=== PATIENT | female | born 1935 | race Caucasian/White ===

== ENCOUNTER 2017-03-11 04:15 | Observation (INO) | payer MEDICARE, OTHER ==
[~2017-03-11] VITALS: Ht 162.6 cm; Wt 57.9 kg
[2017-03-11] VITALS (16 sets, daily range): BP systolic 83–149; BP diastolic 48–88; PULSE 61–86; RESP 16–21; TEMP 96.1–99.4; O2SAT 6–99
[~2017-03-11 04:15] MED LIST: CIPR500T4 PO; FLAG500T PO; LEVA750T PO; ZOFR4TAB3 SL
--- NOTE | 2017-03-11 04:42 | PD ---
HPI Chief Complaint: Abdominal Pain Time Seen by Provider: 04:37 Travel History International Travel<30 days: No Contact w/Intl Traveler<30days: No Traveled to known affect area: No History of Present Illness HPI 81-year-old female presents to the emergency department for complaint of intermittent severe lower abdominal pain. Pain is severe when present. Pain seemed to worsen since the last half hour 24. Patient started noticing onset of discomfort after bedtime around 10 PM. No fever no chills has had nausea no vomiting no diarrhea no melena or hematochezia. Normal urine output. Last bowel movement was yesterday. Patient denies any fever or chills. Patient's had no chest pain or shortness of breath. No referred back pain. No injury. Patient has had diverticulitis in the past. Previous . Patient believes she may have had appendectomy in the past. Patient states pain is severe enough to make her near syncopal although she's had no loss of consciousness. Patient is unable to identify exacerbating or alleviating factors. No recent antibiotic use. PFSH Past Medical History Narrative Medical Diverticulitis, headaches, laminectomy, , appendectomy; no tobacco use alcohol use; nursing notes reviewed Diminished Hearing: No Diverticulitis: Yes Headaches: Yes Immunizations Current: Yes Menopausal: Yes Social History Alcohol Use: No Tobacco Use: No Substance Use: No Allergies-Medications (Allergen,Severity, Reaction): Coded Allergies: No Known Allergies (Unverified , 03/11/17) Reported Meds & Prescriptions Reported Meds & Active Scripts Active Phenergan (Promethazine HCl) 25 Mg Tablet 25 Mg PO Q6H PRN Flagyl (Metronidazole) 500 Mg Tab 500 Mg PO TID 7 Days Cipro (Ciprofloxacin HCl) 250 Mg Tab 250 Mg PO BID 7 Days Pyridium (Phenazopyridine HCl) 100 Mg Tab 100 Mg PO Q8H PRN Review of Systems Except as stated in HPI: all other systems reviewed are Neg Physical Exam Narrative GENERAL: Well-developed thin female in no respiratory distress intermittently grimacing with abdominal discomfort SKIN: Warm and dry. HEAD: Normocephalic. EYES: No scleral icterus. No injection or drainage. NECK: Supple, trachea midline. No JVD or lymphadenopathy. CARDIOVASCULAR: Regular rate and rhythm without murmurs, gallops, or rubs. RESPIRATORY: Breath sounds equal bilaterally. No accessory muscle use. GASTROINTESTINAL: Abdomen soft, left lower quadrant tenderness without guarding or rebound, nondistended. No palpable pulsatile mass. MUSCULOSKELETAL: No cyanosis, or edema. BACK: Nontender without obvious deformity. No CVA tenderness. Data Data Last Documented VS Vital Signs Date Time Temp Pulse Resp B/P Pulse Ox O2 Delivery O2 Flow Rate FiO2 03/11/17 11:00 16 03/11/17 10:57 82 115/73 96 Room Air 03/11/17 04:23 97.4 Orders Complete Blood Count With Diff (03/11/17 04:37) Comprehensive Metabolic Panel (03/11/17 04:37) Lipase (03/11/17 04:37) Lactic Acid (03/11/17 04:37) Prothrombin Time / Inr (Pt) (03/11/17 04:37) Act Partial Throm Time (Ptt) (03/11/17 04:37) Urinalysis - C+S If Indicated (03/11/17 04:37) Ct Abd/Pel W Iv Contrast(Rout) (03/11/17 04:37) Iv Access Insert/Monitor (03/11/17 04:37) Ecg Monitoring (03/11/17 04:37) Oximetry (03/11/17 04:37) Ondansetron Inj (Zofran Inj) (03/11/17 04:45) Sodium Chlor 0.9% 1000 Ml Inj (Ns 1000 M (03/11/17 04:37) Sodium Chloride 0.9% Flush (Ns Flush) (03/11/17 04:45) Electrocardiogram (03/11/17 04:37) Chest, Single Ap (03/11/17 04:37) Morphine Inj (Morphine Inj) (03/11/17 04:45) Magnesium (Mg) (03/11/17 04:37) Troponin I (03/11/17 04:37) Morphine Inj (Morphine Inj) (03/11/17 06:15) Ondansetron Inj (Zofran Inj) (03/11/17 06:15) Urine Culture (03/11/17 06:20) Sodium Chlorid 0.9% 500 Ml Inj (Ns 500 M (03/11/17 07:15) Iohexol 350 Inj (Omnipaque 350 Inj) (03/11/17 07:06) Ceftriaxone Inj (Rocephin Inj) (03/11/17 07:30) Ciprofloxacin 400 Mg Premix (Cipro 400 M (03/11/17 07:45) Sodium Chlorid 0.9% 500 Ml Inj (Ns 500 M (03/11/17 08:45) Ondansetron Inj (Zofran Inj) (03/11/17 10:00) Sodium Chlorid 0.9% 500 Ml Inj (Ns 500 M (03/11/17 10:00) Metronidazole 500 Mg Inj (Flagyl 500 Mg (03/11/17 11:15) Vital Signs (Adult) CASSANDRA.Q4H (03/11/17 11:25) Metronidazole 500 Mg Inj (Flagyl 500 Mg (03/11/17 20:00) Ciprofloxacin 400 Mg Premix (Cipro 400 M (03/11/17 18:00) Ondansetron Inj (Zofran Inj) (03/11/17 11:30) Sodium Chlor 0.9% 1000 Ml Inj (Ns 1000 M (03/11/17 11:30) Admit Order (Ed Use Only) (03/11/17 11:30) Labs Laboratory Tests Test 03/11/17 03/11/17 03/11/17 03/11/17 04:50 05:00 05:32 06:20 White Blood Count 7.3 TH/MM3 Red Blood Count 4.88 MIL/MM3 Hemoglobin 14.2 GM/DL Hematocrit 43.1 % Mean Corpuscular Volume 88.4 FL Mean Corpuscular Hemoglobin 29.2 PG Mean Corpuscular Hemoglobin 33.0 % Concent Red Cell Distribution Width 13.2 % Platelet Count 272 TH/MM3 Mean Platelet Volume 9.6 FL Neutrophils (%) (Auto) 46.2 % Lymphocytes (%) (Auto) 43.6 % Monocytes (%) (Auto) 7.7 % Eosinophils (%) (Auto) 1.6 % Basophils (%) (Auto) 0.9 % Neutrophils # (Auto) 3.3 TH/MM3 Lymphocytes # (Auto) 3.2 TH/MM3 Monocytes # (Auto) 0.6 TH/MM3 Eosinophils # (Auto) 0.1 TH/MM3 Basophils # (Auto) 0.1 TH/MM3 CBC Comment DIFF FINAL Differential Comment Lactic Acid Level 1.5 mmol/L Prothrombin Time 12.7 SEC Prothromb Time International 1.1 RATIO Ratio Activated Partial 26.8 SEC Thromboplast Time Sodium Level 139 MEQ/L Potassium Level 5.1 MEQ/L Chloride Level 108 MEQ/L Carbon Dioxide Level 24.4 MEQ/L Anion Gap 7 MEQ/L Blood Urea Nitrogen 23 MG/DL Creatinine 0.77 MG/DL Estimat Glomerular Filtration 72 ML/MIN Rate Random Glucose 100 MG/DL Calcium Level 8.6 MG/DL Magnesium Level 2.5 MG/DL Total Bilirubin 0.4 MG/DL Aspartate Amino Transf 38 U/L (AST/SGOT) Alanine Aminotransferase 32 U/L (ALT/SGPT) Alkaline Phosphatase 30 U/L Troponin I LESS THAN 0.02 NG/ML Total Protein 6.5 GM/DL Albumin 3.4 GM/DL Lipase 202 U/L Urine Color KITE Urine Turbidity CLEAR Urine pH 5.5 Urine Specific [place] 1.025 Urine Protein NEG mg/dL Urine Glucose (UA) NEG mg/dL Urine Ketones TRACE mg/dL Urine Occult Blood NEG Urine Nitrite NEG Urine Bilirubin NEG Urine Leukocyte Esterase SMALL Urine RBC 0-2 /hpf Urine WBC 9-14 /hpf Urine Squamous Epithelial 0-5 /hpf Cells Urine Bacteria OCC /hpf Microscopic Urinalysis Comment CULTURE INDICATED MDM Medical Decision Making Medical Screen Exam Complete: Yes Emergency Medical Condition: Yes Medical Record Reviewed: Yes Interpretation(s) lactic acid: 1.5, not elevated ekg: Normal sinus rhythm rate [address] elevation or injury pattern change noted CBC & BMP Diagram 03/11/17 04:50 03/11/17 05:32 lipase: 202, wnl'LFT's: wnl ua: leuk esterase, wbc's and bacteria --cx indicated troponin I: less than 0.02, not elevated Differential Diagnosis Abdominal pain, diverticulitis, viscus perforation, abdominal aortic aneurysm, colitis, UTI, ischemic colitis Narrative Course IV access obtained specimens collected and sent for resulting EKG ordered; patient administered maintenance IV fluids 125 cc an hour morphine sulfate 2-1/ 2 mg IV along with Zofran [address] abdomen and pelvis ordered Patient administered 500 mL bolus of normal saline after morphine sulfate pain controlled Patient requiring re-collection of chemistries and again complaining of increasing abdominal pain colicky in nature diffuse and generalized Patient requesting additional pain medication re-medicated times one dose morphine sulfate 2 mg IV along with Zofran 4 mg IV CBC is automated differential values in normal range Urinalysis positive leukocyte Estrace positive bacteria positive white blood cells culture indicated Metabolic panel resulted shows mild dehydration elevated BUN creatinine and normal range specific gravity upper limit of normal; patient to CT CT abdomen and pelvis reading pending; repeat BP; hypotensive @85/47; patient asymptomatic ---reports "I always run very low"; abdomen re-examined --soft nondistended and nontender to direct palpation to all quadrants and periumbilically, no clinical Florence sign no reproducible tenderness at McBurney' s point no palpable pulsatile mass; no guarding no rebound. Patient denies any pain at this time. @ 07:40 CT reading --- colitis; patient aware feeling some improved, pain decreased, BP trending upward, receiving iv fluids; no bowel movements. Will plan outpatient management if continues to improve. Aware will reassess prior to disposition. Case discussed with oncjustino JI. Diagnosis Primary Impression: Abdominal pain Qualified Code: R10.84 - Generalized abdominal pain Additional Impressions: Colitis UTI (urinary tract infection) Qualified Code: N39.0 - Urinary tract infection without hematuria, site unspecified Med/Other Pt SpecificInfo: Prescription(s) given Scripts Promethazine (Phenergan)25 Mg [id number] Mg PO Q6H PRN (NAUSEA OR VOMITING) #10 TAB Ref 0 Prov:Luisana Cedillo MD 03/11/17 Metronidazole (Flagyl)500 Mg [id number] Mg PO TID 7 Days Ref 0 Prov:Luisana Cedillo MD 03/11/17 Ciprofloxacin (Cipro)250 Mg [id number] Mg PO BID 7 Days Ref 0 Prov:Luisana Cedillo MD 03/11/17 Phenazopyridine (Pyridium)100 Mg [id number] Mg PO Q8H PRN (DYSURIA) #6 TAB Ref 0 Prov:Luisana Cedillo MD 03/11/17 Luisana Cedillo MD March 11, 2017 04:41
[2017-03-11] MEDS ORDERED: ONDANSETRON HCL 4 MG/2 ML VIAL IVP ONE (04:45)
[2017-03-11] MEDS ORDERED: MORPHINE SULFATE 4 MG/ML INJ IV PUSH ONE ×2 (04:45→06:15)
[2017-03-11] MEDS: SODIUM CHLOR 0.9% 1000 ML INJ 1,000 ML IV SCH ×3 (04:45→17:17)
[2017-03-11] MEDS: SODIUM CHLORIDE 0.9% FLUSH 10 ML FLUSH IV FLUSH PRN ×6 (04:47→11:22)
[2017-03-11 05:12] LABS: AUTOMATED NEUTROPHIL # 3.3 TH/MM3 (1.8-7.7); BASOPHIL # 0.1 TH/MM3 (0-0.2); BASOPHIL % 0.9 % (0.0-2.0); EOSINOPHIL # 0.1 TH/MM3 (0-0.4); EOSINOPHIL % 1.6 % (0.0-4.0); HEMATOCRIT 43.1 % (35.0-46.0); HEMO FLAGS DIFF FINAL; LYMPH % 43.6 % (9.0-44.0); LYMPHOCYTE # 3.2 TH/MM3 (1.0-4.8); MEAN CELL VOLUME 88.4 FL (80.0-100.0); MEAN CORPUSCULAR HEMOGLOBIN 29.2 PG (27.0-34.0); MONO % 7.7 % (0.0-8.0); NEUT % 46.2 % (16.0-70.0); PLATELET COUNT 272 TH/MM3 (150-450); RED BLOOD COUNT 4.88 MIL/MM3 (4.00-5.30); RED CELL DISTRIBUTION WIDTH 13.2 % (11.6-17.2); WHITE BLOOD COUNT 7.3 TH/MM3 (4.0-11.0)
--- NOTE | 2017-03-11 05:31 | RADHPO ---
EXAM DATE/TIME: 03/11/2017 04:57 [facility] COMPARISON: No previous studies available for comparison. INDICATIONS : Chest discomfort, abdominal pain for 6 hours MEDICAL HISTORY : None. SURGICAL HISTORY : None. ENCOUNTER: Initial ACUITY: 1 day PAIN SCORE: 0/10 LOCATION: Bilateral chest FINDINGS: A single view of the chest demonstrates the lungs to be symmetrically aerated without evidence of mas s, infiltrate or effusion. The cardiomediastinal contours are unremarkable. Osseous structures are intact. CONCLUSION: Normal examination. Right hemidiaphragm remains elevated Krishna Santiago MD on March 11, 2017 at 5:29 Board Certified Radiologist. This report was verified electronically.
[2017-03-11 05:49] LABS: CHLORIDE 108 MEQ/L (98-107); SODIUM (NA) 139 MEQ/L (136-145)
[2017-03-11 05:51] LABS: POTASSIUM 5.1 MEQ/L (3.5-5.1)
[2017-03-11 05:52] LABS: ANION GAP 7 MEQ/L (5-15); BICARBONATE 24.4 MEQ/L (21.0-32.0)
[2017-03-11 05:53] LABS: BLOOD UREA NITROGEN 23 MG/DL (7-18); MAGNESIUM 2.5 MG/DL (1.5-2.5)
[2017-03-11 05:54] LABS: APTT (PATIENT) 26.8 SEC (24.3-30.1); INTERNATIONAL NORMALIZED RATIO 1.1 RATIO; PROTHROMBIN TIME - PATIENT 12.7 SEC (9.8-11.6)
[2017-03-11 05:55] LABS: ALT (GPT) 32 U/L (10-53); AST (GOT) 38 U/L (15-37)
[2017-03-11 05:56] LABS: GLOMERULAR FILTRATION RATE 72 ML/MIN (>89)
[2017-03-11 05:57] LABS: TOTAL BILIRUBIN ADULT 0.4 MG/DL (0.2-1.0)
[2017-03-11 05:58] LABS: ALKALINE PHOSPHATASE 30 U/L (45-117)
[2017-03-11] MEDS ORDERED: ONDANSETRON HCL 4 MG/2 ML VIAL IV PUSH ONE ×2 (06:15→10:00)
[2017-03-11 06:29] LABS: BLOOD, URINE NEG (NEG); GLUCOSE,URINE NEG (NEG); KETONE, URINE TRACE mg/dL (NEG); NITRITE,URINE NEG (NEG); PH, URINE 5.5 (5.0-8.5)
[2017-03-11 06:36] LABS: BACTERIA, URINE OCC /hpf; RBC, URINE 0-2 /hpf (0-3); SQUAMOUS EPITHELIAL CELL URINE 0-5 /hpf (0-5); URINE COLOR AMBER (YELLW/STRAW)
[2017-03-11 06:37] LABS: COMMENT (UR) CULTURE INDICATED; CULTURE IF INDICATED CULTURE INDICATED
[2017-03-11] MEDS ORDERED: IOHEXOL 350 MG/ML 10 ML VIAL (for RAD DIAG) IV ONE (07:06)
[2017-03-11] MEDS ORDERED: SODIUM CHLORID 0.9% 500 ML INJ 500 ML IV ONE ×3 (07:15→10:00)
[2017-03-11] MEDS ORDERED: MACR100C2 PO (07:25)
[2017-03-11] MEDS ORDERED: ZOFR4TAB3 SL (07:25)
[2017-03-11] MEDS ORDERED: PHEN0.4T PO (07:25)
[2017-03-11] MEDS ORDERED: cefTRIAXone INJ 1,000 MG in SODIUM CHLORIDE 0.9% INJ 100 ML IV ONE (07:30)
--- NOTE | 2017-03-11 07:35 | RADHPO ---
EXAM DATE/TIME: 03/11/2017 06:26 [facility] COMPARISON: No previous studies available for comparison. INDICATIONS : Lower abdominal pain. IV CONTRAST: 100 cc Omnipaque 350 (iohexol) IV ORAL CONTRAST: No oral contrast ingested. RADIATION DOSE: 6.7 CTDIvol (mGy) MEDICAL HISTORY : Diverticulitis. SURGICAL HISTORY : laminectomy. ENCOUNTER: Initial ACUITY: 1 day PAIN SCALE: 8/10 LOCATION: Bilateral lower quadrant TECHNIQUE: Volumetric scanning of the abdomen and pelvis was performed. Using automated exposure control and ad justment of the mA and/or kV according to patient size, radiation dose was kept as low as reasonably achievable to obtain optimal diagnostic quality images. FINDINGS: LOWER LUNGS: The visualized lower lungs are clear. LIVER: There are scattered small cysts of the liver. Heterogeneously enhancing focus measuring about 3.1 cm is seen at the dome of the right hepatic lobe, probably a hemangioma. SPLEEN: Normal size without lesion. PANCREAS: Within normal limits. KIDNEYS: Normal in size and shape. There is no mass, stone or hydronephrosis. ADRENAL GLANDS: Within normal limits. VASCULAR: There is no aortic aneurysm. BOWEL/MESENTERY: Succus like material throughout the colon, mildly distended and with a slight degree of wall thickeni ng and pericolonic stranding. There is also some succus material within the distal ileum. The small b owel is nondistended. There is moderate sigmoid colon diverticulosis but the colonic findings are dif fuse. No perceptible mass. No free fluid or free air. ABDOMINAL WALL: Within normal limits. RETROPERITONEUM: There is no lymphadenopathy. BLADDER: No wall thickening or mass. REPRODUCTIVE: Previous hysterectomy. The ovaries appear to be present. No adnexal mass demonstrated. INGUINAL: There is no lymphadenopathy or hernia. MUSCULOSKELETAL: No acute bony abnormality demonstrated. CONCLUSION: Generalized nonspecific colitis. Álvaro Powell MD on March 11, 2017 at 7:29 Board Certified Radiologist. This report was verified electronically.
[2017-03-11] MEDS ORDERED: METR-1 PO (07:44)
[2017-03-11] MEDS ORDERED: PROM25TA10 PO (07:44)
[2017-03-11] MEDS ORDERED: CIPR250T52 PO (07:44)
[2017-03-11] MEDS ORDERED: CIPROFLOXACIN 400 MG PREMIX 200 ML IV ONE (07:45)
[2017-03-11] MEDS ORDERED: metroNIDAZOLE 500 MG INJ 100 ML IV ONE (11:15)
--- NOTE | 2017-03-11 11:29 | PD ---
Physical Exam Date Seen by Provider: March 11, 2017 Time Seen by Provider: 11:18 Narrative The patient is a 81-year-old female who was initially evaluated by the previous physician, Dr. Cedillo. Please refer to the initial history, physical, diagnostic evaluation, and treatment modality plan. Data Data Last Documented VS Vital Signs Date Time Temp Pulse Resp B/P Pulse Ox O2 Delivery O2 Flow Rate FiO2 03/11/17 11:00 16 03/11/17 10:57 82 115/73 96 Room Air 03/11/17 04:23 97.4 Orders Complete Blood Count With Diff (03/11/17 04:37) Comprehensive Metabolic Panel (03/11/17 04:37) Lipase (03/11/17 04:37) Lactic Acid (03/11/17 04:37) Prothrombin Time / Inr (Pt) (03/11/17 04:37) Act Partial Throm Time (Ptt) (03/11/17 04:37) Urinalysis - C+S If Indicated (03/11/17 04:37) Ct Abd/Pel W Iv Contrast(Rout) (03/11/17 04:37) Iv Access Insert/Monitor (03/11/17 04:37) Ecg Monitoring (03/11/17 04:37) Oximetry (03/11/17 04:37) Ondansetron Inj (Zofran Inj) (03/11/17 04:45) Sodium Chlor 0.9% 1000 Ml Inj (Ns 1000 M (03/11/17 04:37) Sodium Chloride 0.9% Flush (Ns Flush) (03/11/17 04:45) Electrocardiogram (03/11/17 04:37) Chest, Single Ap (03/11/17 04:37) Morphine Inj (Morphine Inj) (03/11/17 04:45) Magnesium (Mg) (03/11/17 04:37) Troponin I (03/11/17 04:37) Morphine Inj (Morphine Inj) (03/11/17 06:15) Ondansetron Inj (Zofran Inj) (03/11/17 06:15) Urine Culture (03/11/17 06:20) Sodium Chlorid 0.9% 500 Ml Inj (Ns 500 M (03/11/17 07:15) Iohexol 350 Inj (Omnipaque 350 Inj) (03/11/17 07:06) Ceftriaxone Inj (Rocephin Inj) (03/11/17 07:30) Ciprofloxacin 400 Mg Premix (Cipro 400 M (03/11/17 07:45) Sodium Chlorid 0.9% 500 Ml Inj (Ns 500 M (03/11/17 08:45) Ondansetron Inj (Zofran Inj) (03/11/17 10:00) Sodium Chlorid 0.9% 500 Ml Inj (Ns 500 M (03/11/17 10:00) Metronidazole 500 Mg Inj (Flagyl 500 Mg (03/11/17 11:15) Labs Laboratory Tests Test 03/11/17 03/11/17 03/11/17 03/11/17 04:50 05:00 05:32 06:20 White Blood Count 7.3 TH/MM3 Red Blood Count 4.88 MIL/MM3 Hemoglobin 14.2 GM/DL Hematocrit 43.1 % Mean Corpuscular Volume 88.4 FL Mean Corpuscular Hemoglobin 29.2 PG Mean Corpuscular Hemoglobin 33.0 % Concent Red Cell Distribution Width 13.2 % Platelet Count 272 TH/MM3 Mean Platelet Volume 9.6 FL Neutrophils (%) (Auto) 46.2 % Lymphocytes (%) (Auto) 43.6 % Monocytes (%) (Auto) 7.7 % Eosinophils (%) (Auto) 1.6 % Basophils (%) (Auto) 0.9 % Neutrophils # (Auto) 3.3 TH/MM3 Lymphocytes # (Auto) 3.2 TH/MM3 Monocytes # (Auto) 0.6 TH/MM3 Eosinophils # (Auto) 0.1 TH/MM3 Basophils # (Auto) 0.1 TH/MM3 CBC Comment DIFF FINAL Differential Comment Lactic Acid Level 1.5 mmol/L Prothrombin Time 12.7 SEC Prothromb Time International 1.1 RATIO Ratio Activated Partial 26.8 SEC Thromboplast Time Sodium Level 139 MEQ/L Potassium Level 5.1 MEQ/L Chloride Level 108 MEQ/L Carbon Dioxide Level 24.4 MEQ/L Anion Gap 7 MEQ/L Blood Urea Nitrogen 23 MG/DL Creatinine 0.77 MG/DL Estimat Glomerular Filtration 72 ML/MIN Rate Random Glucose 100 MG/DL Calcium Level 8.6 MG/DL Magnesium Level 2.5 MG/DL Total Bilirubin 0.4 MG/DL Aspartate Amino Transf 38 U/L (AST/SGOT) Alanine Aminotransferase 32 U/L (ALT/SGPT) Alkaline Phosphatase 30 U/L Troponin I LESS THAN 0.02 NG/ML Total Protein 6.5 GM/DL Albumin 3.4 GM/DL Lipase 202 U/L Urine Color KIET Urine Turbidity CLEAR Urine pH 5.5 Urine Specific [place] 1.025 Urine Protein NEG mg/dL Urine Glucose (UA) NEG mg/dL Urine Ketones TRACE mg/dL Urine Occult Blood NEG Urine Nitrite NEG Urine Bilirubin NEG Urine Leukocyte Esterase SMALL Urine RBC 0-2 /hpf Urine WBC 9-14 /hpf Urine Squamous Epithelial 0-5 /hpf Cells Urine Bacteria OCC /hpf Microscopic Urinalysis Comment CULTURE INDICATED MDM Medical Record Reviewed: Yes Supervised Visit with RYAN: No Interpretation(s) Last Impressions Chest X-Ray [id number] Signed Impressions: Service Date/Time: Saturday, March 11, 2017 04:57 - CONCLUSION: Normal examination. Right hemidiaphragm remains elevated Krishna Santiago MD Abdomen/Pelvis CT 03/11/17436 Signed Impressions: Service Date/Time: Saturday, March 11, 2017 06:26 - CONCLUSION: Generalized nonspecific colitis. Álvaro Powell MD Laboratory Tests Test 03/11/17 03/11/17 03/11/17 03/11/17 04:50 05:00 05:32 06:20 White Blood Count 7.3 TH/MM3 Red Blood Count 4.88 MIL/MM3 Hemoglobin 14.2 GM/DL Hematocrit 43.1 % Mean Corpuscular Volume 88.4 FL Mean Corpuscular Hemoglobin 29.2 PG Mean Corpuscular Hemoglobin 33.0 % Concent Red Cell Distribution Width 13.2 % Platelet Count 272 TH/MM3 Mean Platelet Volume 9.6 FL Neutrophils (%) (Auto) 46.2 % Lymphocytes (%) (Auto) 43.6 % Monocytes (%) (Auto) 7.7 % Eosinophils (%) (Auto) 1.6 % Basophils (%) (Auto) 0.9 % Neutrophils # (Auto) 3.3 TH/MM3 Lymphocytes # (Auto) 3.2 TH/MM3 Monocytes # (Auto) 0.6 TH/MM3 Eosinophils # (Auto) 0.1 TH/MM3 Basophils # (Auto) 0.1 TH/MM3 CBC Comment DIFF FINAL Differential Comment Lactic Acid Level 1.5 mmol/L Prothrombin Time 12.7 SEC Prothromb Time International 1.1 RATIO Ratio Activated Partial 26.8 SEC Thromboplast Time Sodium Level 139 MEQ/L Potassium Level 5.1 MEQ/L Chloride Level 108 MEQ/L Carbon Dioxide Level 24.4 MEQ/L Anion Gap 7 MEQ/L Blood Urea Nitrogen 23 MG/DL Creatinine 0.77 MG/DL Estimat Glomerular Filtration 72 ML/MIN Rate Random Glucose 100 MG/DL Calcium Level 8.6 MG/DL Magnesium Level 2.5 MG/DL Total Bilirubin 0.4 MG/DL Aspartate Amino Transf 38 U/L (AST/SGOT) Alanine Aminotransferase 32 U/L (ALT/SGPT) Alkaline Phosphatase 30 U/L Troponin I LESS THAN 0.02 NG/ML Total Protein 6.5 GM/DL Albumin 3.4 GM/DL Lipase 202 U/L Urine Color KIET Urine Turbidity CLEAR Urine pH 5.5 Urine Specific [place] 1.025 Urine Protein NEG mg/dL Urine Glucose (UA) NEG mg/dL Urine Ketones TRACE mg/dL Urine Occult Blood NEG Urine Nitrite NEG Urine Bilirubin NEG Urine Leukocyte Esterase SMALL Urine RBC 0-2 /hpf Urine WBC 9-14 /hpf Urine Squamous Epithelial 0-5 /hpf Cells Urine Bacteria OCC /hpf Microscopic Urinalysis Comment CULTURE INDICATED Differential Diagnosis Differential diagnosis includes gastroenteritis, colitis, enteritis, diverticulitis, pyelonephritis, infectious diarrhea, dehydration. Narrative Course The patient was initially evaluated by the previous physician, Dr. Cedillo. Please refer to the initial history, physical, diagnostic evaluation, treatment modality plan. The patient signed out at 7 AM with reevaluation pending. The patient's CT reveals colitis, UA reveals WBCs, otherwise electrolytes and white count are unremarkable. The patient was provided multiple doses of Zofran, morphine, IV fluids, but continued to have nausea. She is unable to tolerate oral intake in the first 6 hours and continued to have diarrhea. The patient was reevaluated over the course of 6 hours, she continued to have symptoms, did not feel well enough to go home. I believe it is reasonable to make a patient a 23 hour observation for IV fluids, Bentyl, and Zofran as needed. I discussed the patient with the on-call medical service who agrees with 23 hour observation. Physician Communication Physician Communication I discussed the patient with Dr. Huang who agrees with 23 hour observation. Diagnosis Primary Impression: Abdominal pain Qualified Code: R10.84 - Generalized abdominal pain Additional Impressions: Colitis UTI (urinary tract infection) Qualified Code: N39.0 - Urinary tract infection without hematuria, site unspecified Admitting Information Admitting Physician Requests: Observation Referrals: Primary Care Physician call for appointment Patient Instructions: General Instructions, Narcotic given in the ED, Urinary Tract Infection in Women (ED), Abdominal Pain (ED), Colitis (ED) Departure Forms: Tests/Procedures Scripts Promethazine (Phenergan)25 Mg [id number] Mg PO Q6H PRN (NAUSEA OR VOMITING) #10 TAB Ref 0 Prov:Luisana Cedillo MD 03/11/17 Metronidazole (Flagyl)500 Mg [id number] Mg PO TID 7 Days Ref 0 Prov:Luisana Cedillo MD 03/11/17 Ciprofloxacin (Cipro)250 Mg [id number] Mg PO BID 7 Days Ref 0 Prov:Luisana Cedillo MD 03/11/17 Phenazopyridine (Pyridium)100 Mg [id number] Mg PO Q8H PRN (DYSURIA) #6 TAB Ref 0 Prov:Luisana Cedillo MD 03/11/17 Mayank Bowman MD March 11, 2017 11:29
[2017-03-11] MEDS ORDERED: SODIUM CHLOR 0.9% 1000 ML INJ 1,000 ML IV SCH (11:30)
[2017-03-11] MEDS ORDERED: ONDANSETRON HCL 4 MG/2 ML VIAL IV PUSH PRN (11:30)
[2017-03-11] MEDS ORDERED: ACETAMINOPHEN/HYDROcodone 325 MG/5 MG TAB PO PRN (12:15)
[2017-03-11] MEDS ORDERED: ACETAMINOPHEN 325 MG TAB PO PRN (12:15)
--- NOTE | 2017-03-11 12:18 | HHI.HP ---
[facility] Service [facility] Primary Care Physician Non-Staff Admission Diagnosis colitis, UTI, intractable nausea, abdominal pain Diagnoses: (1) Colitis Diagnosis: Principal (2) UTI (urinary tract infection) Diagnosis: Principal Chief Complaint: abdominal pain Travel History International Travel<30 Days: No Contact w/Intl Traveler <30 Da: No Traveled to Known Affected Are: No History of Present Illness patient is a 81 y/o female who presented to ER with abdominal pain. she says that the pain started last night. pain was periumbilical , colicky in nature and severe in intensity. the pain was associated with nausea and a few non- bloody loose bowel movements. she didn't vomit . there's no report of fever but she had some chills last night. Review of Systems Constitutional: COMPLAINS OF: Chills, DENIES: Fever, Weight loss, Night Sweats Eyes: DENIES: Blurred vision, Diplopia, Vision loss, Double Vision Ears, nose, mouth, throat: DENIES: Tinnitus, Vertigo, Throat pain, Epistaxis Respiratory: DENIES: Apneas, Cough, Snoring, Wheezing, Hemoptysis, Sputum production, Shortness of breath Cardiovascular: DENIES: Chest pain, Palpitations, Syncope, Dyspnea on Exertion , PND, Lower Extremity Edema, Orthopnea, Claudication Gastrointestinal: COMPLAINS OF: Abdominal pain, Diarrhea, Nausea, DENIES: Black stools, Bloody stools, Constipation, Vomiting, Difficulty Swallowing, Anorexia Genitourinary: DENIES: Urinary frequency, Urgency, Hematuria, Dysuria Musculoskeletal: DENIES: Joint pain, Muscle aches, Stiffness, Joint Swelling Integumentary: DENIES: Rash Neurologic: DENIES: Abnormal gait, Headache, Localized weakness, Paresthesias, Seizures, Speech Problems, Tremor, Poor Balance Psychiatric: DENIES: Anxiety, Confusion, Mood changes, Depression, Hallucinations, Agitation, Suicidal Ideation, Homicidal Ideation, Delusions Past Family Social History Past Medical History not significant Past Surgical History back surgery. Reported Medications Zofran Odt (Ondansetron Odt) 4 Mg Tab 4 Mg SL Q6HR PRN Pyridium (Phenazopyridine HCl) 100 Mg Tab 100 Mg PO Q8H PRN Macrobid (Nitrofurantoin Monohydrate Macrocrystals) 100 Mg Capsule 100 Mg PO BID 7 Days Allergies: Coded Allergies: No Known Allergies (Unverified , 03/11/17) Active Ordered Medications Current Medications Ondansetron HCl 4 mg 4 mg ONCE ONCE IVP Last administered on 03/11/17 04:46; Start 03/11/17 at 04:45; Stop 03/11/17 at 04:46; Status DC Sodium Chloride (NS 1000 ml Inj) 1,000 ml @ 125 mls/hr Q8H IV Last administered on 03/11/17 09:53; Start 03/11/17 at 04:37; Stop 03/11/17 at 11:29 ; Status DC Sodium Chloride (NS Flush) 2 ml UNSCH PRN IV FLUSH FLUSH AFTER USING IV ACCESS Last administered on 03/11/17 11:22; Start 03/11/17 at 04:45 Morphine Sulfate (Morphine Inj) 2.5 mg ONCE ONCE IV PUSH Last administered on 03/11/17 04:47; Start 03/11/17 at 04:45; Stop 03/11/17 at 04:46; Status DC Morphine Sulfate (Morphine Inj) 3 mg ONCE ONCE IV PUSH Last administered on 06:11; Start 03/11/17 at 06:15; Stop 03/11/17 at 06:16; Status DC Ondansetron HCl 4 mg 4 mg ONCE ONCE IV PUSH Last administered on 03/11/17 06: 10; Start 03/11/17 at 06:15; Stop 03/11/17 at 06:16; Status DC Sodium Chloride (NS 500 ml Inj) 500 ml @ 500 mls/hr BOLUS ONCE IV Last administered on 03/11/17 07:23; Start 03/11/17 at 07:15; Stop 03/11/17 at 08:14 ; Status DC Iohexol 100 ml 100 ml STK-MED ONCE IV Last administered on 03/11/17 07:06; Start 03/11/17 at 07:06; Stop 03/11/17 at 07:07; Status DC Ceftriaxone Sodium 1000 mg/ Sodium Chloride 100 ml @ 200 mls/hr ONCE ONCE IV Last administered on 03/11/17 07:48; Start 03/11/17 at 07:30; Stop 03/11/17 at 07:59; Status DC Ciprofloxacin/ Dextrose 200 ml @ 200 mls/hr ONCE ONCE IV Last administered on 03/11/17 08:26; Start 03/11/17 at 07:45; Stop 03/11/17 at 08:44; Status DC Sodium Chloride (NS 500 ml Inj) 500 ml @ 500 mls/hr BOLUS ONCE IV Last administered on 03/11/17 08:44; Start 03/11/17 at 08:45; Stop 03/11/17 at 09:44 ; Status DC Ondansetron HCl 4 mg 4 mg ONCE ONCE IV PUSH Last administered on 03/11/17 09: 53; Start 03/11/17 at 10:00; Stop 03/11/17 at 10:01; Status DC Sodium Chloride 500 ml @ 500 mls/hr BOLUS ONCE IV Last administered on 09:58; Start 03/11/17 at 10:00; Stop 03/11/17 at 10:59; Status DC Metronidazole 100 ml @ 100 mls/hr ONCE ONCE IV Last administered on 11:22; Start 03/11/17 at 11:15; Stop 03/11/17 at 12:14 Metronidazole 100 ml @ 100 mls/hr Q8H IV ; Start 03/11/17 at 20:00 Ciprofloxacin/ Dextrose (Cipro 400 Mg Premix) 200 ml @ 200 mls/hr Q12H IV ; Start 03/11/17 at 18:00 Ondansetron HCl 4 mg 4 mg Q8HR PRN IV PUSH NAUSEA; Start 03/11/17 at 11:30 Sodium Chloride (NS 1000 ml Inj) 1,000 ml @ 84 mls/hr [id number] IV ; Start at 11:30 Social History no smoking or drinking. Physical Exam Vital Signs Vital Signs Date Time Temp Pulse Resp B/P Pulse Ox O2 Delivery O2 Flow Rate FiO2 03/11/17 11:51 64 16 113/71 95 Room Air 03/11/17 11:00 16 03/11/17 10:57 82 16 115/73 96 Room Air 03/11/17 10:30 74 16 111/64 96 Room Air 03/11/17 09:36 78 18 101/62 99 Room Air 03/11/17 09:10 16 03/11/17 08:35 73 16 94/56 96 Room Air 03/11/17 07:50 84 16 95/58 95 Room Air 03/11/17 07:30 79 16 87/55 03/11/17 07:05 16 03/11/17 07:05 61 16 83/48 96 Room Air 03/11/17 06:25 75 19 120/72 97 Room Air 03/11/17 06:16 17 03/11/17 05:20 78 18 149/82 96 Room Air 03/11/17 05:14 Room Air 03/11/17 04:52 18 03/11/17 04:23 97.4 68 18 126/88 99 Physical Exam GENERAL: This is a well-nourished, well-developed patient, in no apparent distress. HEAD: Atraumatic. Normocephalic. No temporal or scalp tenderness. EYES: Pupils equal round and reactive. Extraocular motions intact. No scleral icterus. No injection or drainage. ENT: Nose without bleeding, purulent drainage or septal hematoma. Throat without erythema, tonsillar hypertrophy or exudate. Uvula midline. Airway patent. NECK: Trachea midline. No JVD or lymphadenopathy. Supple, nontender, no meningeal signs. CARDIOVASCULAR: Regular rate and rhythm without murmurs, gallops, or rubs. RESPIRATORY: Clear to auscultation. Breath sounds equal bilaterally. No wheezes , rales, or rhonchi. GASTROINTESTINAL: Abdomen soft, non-tender, nondistended. No hepato-splenomegaly , or palpable masses. No guarding. MUSCULOSKELETAL: Extremities without clubbing, cyanosis, or edema. No joint tenderness, effusion, or edema noted. No calf tenderness. Negative Homans sign bilaterally. NEUROLOGICAL: Awake and alert. Cranial nerves II through XII intact. Motor and sensory grossly within normal limits. Five out of 5 muscle strength in all muscle groups. Normal speech. Laboratory Laboratory Tests Test 03/11/17 03/11/17 03/11/17 03/11/17 04:50 05:00 05:32 06:20 White Blood Count 7.3 Red Blood Count 4.88 Hemoglobin 14.2 Hematocrit 43.1 Mean Corpuscular Volume 88.4 Mean Corpuscular Hemoglobin 29.2 Mean Corpuscular Hemoglobin 33.0 Concent Red Cell Distribution Width 13.2 Platelet Count 272 Mean Platelet Volume 9.6 Neutrophils (%) (Auto) 46.2 Lymphocytes (%) (Auto) 43.6 Monocytes (%) (Auto) 7.7 Eosinophils (%) (Auto) 1.6 Basophils (%) (Auto) 0.9 Neutrophils # (Auto) 3.3 Lymphocytes # (Auto) 3.2 Monocytes # (Auto) 0.6 Eosinophils # (Auto) 0.1 Basophils # (Auto) 0.1 CBC Comment DIFF FINAL Differential Comment Lactic Acid Level 1.5 Prothrombin Time 12.7 Prothromb Time International 1.1 Ratio Activated Partial 26.8 Thromboplast Time Sodium Level 139 Potassium Level 5.1 Chloride Level 108 Carbon Dioxide Level 24.4 Anion Gap 7 Blood Urea Nitrogen 23 Creatinine 0.77 Estimat Glomerular Filtration 72 Rate Random Glucose 100 Calcium Level 8.6 Magnesium Level 2.5 Total Bilirubin 0.4 Aspartate Amino Transf 38 (AST/SGOT) Alanine Aminotransferase 32 (ALT/SGPT) Alkaline Phosphatase 30 Troponin I LESS THAN 0.02 Total Protein 6.5 Albumin 3.4 Lipase 202 Urine Color KIET Urine Turbidity CLEAR Urine pH 5.5 Urine Specific [place] 1.025 Urine Protein NEG Urine Glucose (UA) NEG Urine Ketones TRACE Urine Occult Blood NEG Urine Nitrite NEG Urine Bilirubin NEG Urine Leukocyte Esterase SMALL Urine RBC 0-2 Urine WBC 9-14 Urine Squamous Epithelial 0-5 Cells Urine Bacteria OCC Microscopic Urinalysis Comment CULTURE INDICATED Date/Time Procedure Status Source Growth 03/11/17 06:20 Urine Culture Received Urine Clean Catch Pending Result Diagram: 03/11/17 0450 03/11/17 0532 Imaging Last Impressions Chest X-Ray 03/11/17436 Signed Impressions: Service Date/Time: Saturday, March 11, 2017 04:57 - CONCLUSION: Normal examination. Right hemidiaphragm remains elevated Krishna Santiago MD Abdomen/Pelvis CT 03/11/17436 Signed Impressions: Service Date/Time: Saturday, March 11, 2017 06:26 - CONCLUSION: Generalized nonspecific colitis. Álvaro Powell MD Assessment and Plan Assessment and Plan A/P - colitis start on clear liquid diet and advance- slowly as tolerates. continue with IV antibiotics- antiemetics as needed. continue with pain control. -possible UT- continue antibiotic- follow the culture -DVT prophylaxis with SCD's Discussed Condition With ER physician and the patient. Problem Qualifiers (1) UTI (urinary tract infection): Qualified Code: N39.0 - Urinary tract infection without hematuria, site unspecified Jose Huang MD March 11, 2017 12:18
[2017-03-11] MEDS ORDERED: SODIUM CHLOR 0.9% 250 ML INJ 250 ML IV ONE (17:15)
[2017-03-11] MEDS: CIPROFLOXACIN 400 MG PREMIX 200 ML IV SCH (17:16)
[2017-03-11] MEDS: metroNIDAZOLE 500 MG INJ 100 ML IV SCH (22:29)
[2017-03-12 00:50] VITALS: BP 93/61; PULSE 79; RESP 18; TEMP 98.1; O2SAT 99
[2017-03-12 05:30] LABS: C. DIFF EPI 027 PRESUMPTIVE NEGATIVE (NEGATIVE); C. DIFF TOXIN PCR NEGATIVE (NEGATIVE)
[2017-03-12] MEDS: metroNIDAZOLE 500 MG INJ 100 ML IV SCH ×3 (06:16→20:16)
[2017-03-12] MEDS: CIPROFLOXACIN 400 MG PREMIX 200 ML IV SCH ×2 (06:16→17:44)
[2017-03-12 06:19] VITALS: BP 94/57; PULSE 85; RESP 16; TEMP 98.9; O2SAT 95
[2017-03-12 08:00] VITALS: BP 93/58; PULSE 98; RESP 16; TEMP 98.1; O2SAT 93
--- NOTE | 2017-03-12 08:27 | HHI.PR ---
Subjective Remarks still with some nausea. had some diarrhea last night. no abdominal pain today. afebrile. complaining of headache. Objective Vitals Vital Signs Date Time Temp Pulse Resp B/P Pulse Ox O2 Delivery O2 Flow Rate FiO2 03/12/17 06:19 98.9 85 16 94/57 95 03/12/17 00:50 98.1 79 18 93/61 99 03/11/17 21:20 99.4 86 16 95/54 96 03/11/17 16:00 96.5 85 20 88/59 93 03/11/17 14:39 96.1 86 21 108/68 97 03/11/17 14:17 78 16 117/71 98 Nasal Cannula 2 03/11/17 13:00 80 16 111/61 98 Nasal Cannula 2 03/11/17 11:51 64 16 113/71 95 Room Air 03/11/17 11:00 16 03/11/17 10:57 82 16 115/73 96 Room Air 03/11/17 10:30 74 16 111/64 96 Room Air 03/11/17 09:36 78 18 101/62 99 Room Air 03/11/17 09:10 16 03/11/17 08:35 73 16 94/56 96 Room Air I/O 03/11/17 03/11/17 03/11/17 03/12/17 03/12/17 03/12/17 07:00 15:00 23:00 07:00 15:00 23:00 Intake Total 2400 ml Balance 2400 ml Intake IV Total 2400 ml # Voids 3 4 # Bowel Movements 9 4 Result Diagram: 03/11/17 0450 03/11/17 0532 Imaging Last Impressions Chest X-Ray 03/11/17436 Signed Impressions: Service Date/Time: Saturday, March 11, 2017 04:57 - CONCLUSION: Normal examination. Right hemidiaphragm remains elevated Krishna Santiago MD Abdomen/Pelvis CT 03/11/17436 Signed Impressions: Service Date/Time: Saturday, March 11, 2017 06:26 - CONCLUSION: Generalized nonspecific colitis. Álvaro Powell MD Objective Remarks GENERAL: This is a well-nourished, well-developed patient, in no apparent distress. CARDIOVASCULAR: Regular rate and regular rhythm without murmurs, gallops, or rubs. RESPIRATORY: Clear to auscultation. Breath sounds equal bilaterally. No wheezes , rales, or rhonchi. GASTROINTESTINAL: Abdomen soft, non-tender, nondistended. Normal, active bowel sounds MUSCULOSKELETAL: Extremities without clubbing, cyanosis, or edema. NEURO: Alert & Oriented x4 to person, place, time, situation. Moves all ext x4 Procedures none Medications and IVs Current Medications Ondansetron HCl 4 mg 4 mg ONCE ONCE IVP Last administered on 03/11/17 04:46; Start 03/11/17 at 04:45; Stop 03/11/17 at 04:46; Status DC Sodium Chloride (NS 1000 ml Inj) 1,000 ml @ 125 mls/hr Q8H IV Last administered on 03/11/17 09:53; Start 03/11/17 at 04:37; Stop 03/11/17 at 11:29 ; Status DC Sodium Chloride (NS Flush) 2 ml UNSCH PRN IV FLUSH FLUSH AFTER USING IV ACCESS Last administered on 03/11/17 11:22; Start 03/11/17 at 04:45 Morphine Sulfate (Morphine Inj) 2.5 mg ONCE ONCE IV PUSH Last administered on 03/11/17 04:47; Start 03/11/17 at 04:45; Stop 03/11/17 at 04:46; Status DC Morphine Sulfate (Morphine Inj) 3 mg ONCE ONCE IV PUSH Last administered on 06:11; Start 03/11/17 at 06:15; Stop 03/11/17 at 06:16; Status DC Ondansetron HCl 4 mg 4 mg ONCE ONCE IV PUSH Last administered on 03/11/17 06: 10; Start 03/11/17 at 06:15; Stop 03/11/17 at 06:16; Status DC Sodium Chloride (NS 500 ml Inj) 500 ml @ 500 mls/hr BOLUS ONCE IV Last administered on 03/11/17 07:23; Start 03/11/17 at 07:15; Stop 03/11/17 at 08:14 ; Status DC Iohexol 100 ml 100 ml STK-MED ONCE IV Last administered on 03/11/17 07:06; Start 03/11/17 at 07:06; Stop 03/11/17 at 07:07; Status DC Ceftriaxone Sodium 1000 mg/ Sodium Chloride 100 ml @ 200 mls/hr ONCE ONCE IV Last administered on 03/11/17 07:48; Start 03/11/17 at 07:30; Stop 03/11/17 at 07:59; Status DC Ciprofloxacin/ Dextrose 200 ml @ 200 mls/hr ONCE ONCE IV Last administered on 03/11/17 08:26; Start 03/11/17 at 07:45; Stop 03/11/17 at 08:44; Status DC Sodium Chloride (NS 500 ml Inj) 500 ml @ 500 mls/hr BOLUS ONCE IV Last administered on 03/11/17 08:44; Start 03/11/17 at 08:45; Stop 03/11/17 at 09:44 ; Status DC Ondansetron HCl 4 mg 4 mg ONCE ONCE IV PUSH Last administered on 03/11/17 09: 53; Start 03/11/17 at 10:00; Stop 03/11/17 at 10:01; Status DC Sodium Chloride 500 ml @ 500 mls/hr BOLUS ONCE IV Last administered on 09:58; Start 03/11/17 at 10:00; Stop 03/11/17 at 10:59; Status DC Metronidazole 100 ml @ 100 mls/hr ONCE ONCE IV Last administered on 11:22; Start 03/11/17 at 11:15; Stop 03/11/17 at 12:14; Status DC Metronidazole 100 ml @ 100 mls/hr Q8H IV Last administered on 03/12/17 06:16 ; Start 03/11/17 at 20:00 Ciprofloxacin/ Dextrose (Cipro 400 Mg Premix) 200 ml @ 200 mls/hr Q12H IV Last administered on 03/12/17 06:16; Start 03/11/17 at 18:00 Ondansetron HCl 4 mg 4 mg Q8HR PRN IV PUSH NAUSEA Last administered on 15:47; Start 03/11/17 at 11:30 Sodium Chloride (NS 1000 ml Inj) 1,000 ml @ 40 mls/hr Q24H IV Last administered on 03/11/17 15:21; Start 03/11/17 at 11:30; Stop 03/11/17 at 17:04 ; Status DC Acetaminophen (Tylenol) 650 mg Q4H PRN PO FEVER/ PAIN < 5; Start 03/11/17 at 12 :15 Acetaminophen/ Hydrocodone Bitart 1 tab 1 tab Q4H PRN PO PAIN > 5 Last administered on 03/11/17 15:48; Start 03/11/17 at 12:15 Sodium Chloride 1,000 ml @ 75 mls/hr [id number] IV Last administered on 17:17; Start 03/11/17 at 17:15 Sodium Chloride (NS 250 ml Inj) 250 ml @ 250 mls/hr ONCE ONCE IV Last administered on 03/11/17 17:16; Start 03/11/17 at 17:15; Stop 03/11/17 at 18:14 ; Status DC A/P Assessment and Plan A/P - colitis will advance the diet slowly- continue with IV antibiotics- antiemetics as needed. continue with pain control. stool negative for c-diff- will check stool culture. -possible UT- continue antibiotic- follow the culture -DVT prophylaxis with SCD's Discharge Planning possible dc home tomorrow if stable and tolerates the diet. Jose Huang MD March 12, 2017 08:27
[2017-03-12 09:27] LABS: AUTOMATED NEUTROPHIL # 10.5 TH/MM3 (1.8-7.7); BASOPHIL # 0.1 TH/MM3 (0-0.2); BASOPHIL % 1.1 % (0.0-2.0); EOSINOPHIL % 0.1 % (0.0-4.0); HEMATOCRIT 36.6 % (35.0-46.0); HEMO FLAGS DIFF FINAL; LYMPH % 7.9 % (9.0-44.0); MEAN CELL VOLUME 89.3 FL (80.0-100.0); MEAN CORPUSCULAR HEMOGLOBIN 29.7 PG (27.0-34.0); MEAN CORPUSCULAR HGB CONC 33.3 % (32.0-36.0); MONO % 11.5 % (0.0-8.0); NEUT % 79.4 % (16.0-70.0); PLATELET COUNT 224 TH/MM3 (150-450); RED BLOOD COUNT 4.09 MIL/MM3 (4.00-5.30); RED CELL DISTRIBUTION WIDTH 13.2 % (11.6-17.2); WHITE BLOOD COUNT 13.1 TH/MM3 (4.0-11.0)
[2017-03-12] MEDS: ACETAMIN 325 MG/BUTALBITAL 50 MG/CAFFEINE 40 MG TAB PO PRN (09:45)
[2017-03-12] MEDS: SODIUM CHLOR 0.9% 1000 ML INJ 1,000 ML IV SCH ×2 (09:45→17:44)
[2017-03-12 10:32] LABS: BICARBONATE 24.3 MEQ/L (21.0-32.0); POTASSIUM 3.3 MEQ/L (3.5-5.1)
[2017-03-12 11:11] LABS: CALCIUM-PROTEIN CORRECTED 8.4 MG/DL (8.5-10.1)
[2017-03-12 12:00] VITALS: BP 89/57; PULSE 76; RESP 18; TEMP 98.6; O2SAT 94
[2017-03-12] MEDS ORDERED: POTASSIUM CHLORIDE 10 MEQ CONTROLLED RELEASE TAB PO ONE (13:15)
--- NOTE | 2017-03-12 15:23 | EKG ---
Date Performed: 03/11/2017 Time Performed: 04:47:54 PTAGE: 81 years EKG: Sinus rhythm Low QRS voltages in precordial leads Borderline ECG NO PREVIOUS TRACING DOCTOR: Paul Chun Interpretating Date/Time 03/12/2017 15:22:02
[2017-03-12 16:00] VITALS: BP 84/58; PULSE 84; RESP 20; TEMP 99.1; O2SAT 92
[2017-03-12 20:00] VITALS: BP 84/51; PULSE 87; RESP 18; TEMP 99.1; O2SAT 91
[2017-03-13 00:39] VITALS: BP 91/52; PULSE 79; RESP 16; TEMP 97.9; O2SAT 94
[2017-03-13] MEDS: metroNIDAZOLE 500 MG INJ 100 ML IV SCH ×2 (03:53→11:43)
[2017-03-13] MEDS: ACETAMIN 325 MG/BUTALBITAL 50 MG/CAFFEINE 40 MG TAB PO PRN (03:54)
[2017-03-13] MEDS: CIPROFLOXACIN 400 MG PREMIX 200 ML IV SCH (05:59)
[2017-03-13 07:29] LABS: AUTOMATED NEUTROPHIL # 8.6 TH/MM3 (1.8-7.7); BASOPHIL # 0.1 TH/MM3 (0-0.2); BASOPHIL % 0.6 % (0.0-2.0); EOSINOPHIL % 0.4 % (0.0-4.0); HEMATOCRIT 33.4 % (35.0-46.0); HEMO FLAGS DIFF FINAL; LYMPH % 14.6 % (9.0-44.0); LYMPHOCYTE # 1.6 TH/MM3 (1.0-4.8); MEAN CELL VOLUME 89.1 FL (80.0-100.0); MEAN CORPUSCULAR HEMOGLOBIN 29.5 PG (27.0-34.0); MEAN CORPUSCULAR HGB CONC 33.2 % (32.0-36.0); NEUT % 77.4 % (16.0-70.0); PLATELET COUNT 210 TH/MM3 (150-450); RED BLOOD COUNT 3.75 MIL/MM3 (4.00-5.30); RED CELL DISTRIBUTION WIDTH 13.1 % (11.6-17.2); WHITE BLOOD COUNT 11.1 TH/MM3 (4.0-11.0)
[2017-03-13 08:00] VITALS: BP 93/60; PULSE 80; RESP 18; TEMP 97.8; O2SAT 93
--- NOTE | 2017-03-13 10:04 | HHI.PR ---
Subjective Remarks resting comfortably with no distress. abdominal pain,nausea have resolved. no diarrhea. no fever. Objective Vitals Vital Signs Date Time Temp Pulse Resp B/P Pulse Ox O2 Delivery O2 Flow Rate FiO2 03/13/17 08:00 97.8 80 18 93/60 93 03/13/17 04:00 03/13/17 00:39 97.9 79 16 91/52 94 03/12/17 20:00 99.1 87 18 84/51 91 03/12/17 16:00 99.1 84 20 84/58 92 03/12/17 12:00 98.6 76 18 89/57 94 03/12/17 10:45 16 I/O 03/12/17 03/12/17 03/12/17 03/13/17 03/13/17 03/13/17 06:59 14:59 22:59 06:59 14:59 22:59 Intake Total 690 ml 590 ml 633 ml Balance 690 ml 590 ml 633 ml Intake Oral 690 ml IV Total 590 ml 633 ml # Voids 4 2 5 # Bowel Movements 4 0 Result Diagram: 03/13/17 0632 03/12/17 0855 Imaging Last Impressions Chest X-Ray 03/11/17436 Signed Impressions: Service Date/Time: Saturday, March 11, 2017 04:57 - CONCLUSION: Normal examination. Right hemidiaphragm remains elevated Krishna Santiago MD Abdomen/Pelvis CT 03/11/17436 Signed Impressions: Service Date/Time: Saturday, March 11, 2017 06:26 - CONCLUSION: Generalized nonspecific colitis. Álvaro Powell MD Objective Remarks GENERAL: This is a well-nourished, well-developed patient, in no apparent distress. CARDIOVASCULAR: Regular rate and regular rhythm without murmurs, gallops, or rubs. RESPIRATORY: Clear to auscultation. Breath sounds equal bilaterally. No wheezes , rales, or rhonchi. GASTROINTESTINAL: Abdomen soft, non-tender, nondistended. Normal, active bowel sounds MUSCULOSKELETAL: Extremities without clubbing, cyanosis, or edema. NEURO: Alert & Oriented x4 to person, place, time, situation. Moves all ext x4 Procedures none Medications and IVs Current Medications Ondansetron HCl 4 mg 4 mg ONCE ONCE IVP Last administered on 03/11/17t 04:46; Start 03/11/17 at 04:45; Stop 03/11/17 at 04:46; Status DC Sodium Chloride (NS 1000 ml Inj) 1,000 ml @ 125 mls/hr Q8H IV Last administered on 03/11/17 09:53; Start 03/11/17 at 04:37; Stop 03/11/17 at 11:29 ; Status DC Sodium Chloride (NS Flush) 2 ml UNSCH PRN IV FLUSH FLUSH AFTER USING IV ACCESS Last administered on 03/11/17 11:22; Start 03/11/17 at 04:45 Morphine Sulfate (Morphine Inj) 2.5 mg ONCE ONCE IV PUSH Last administered on 03/11/17 04:47; Start 03/11/17 at 04:45; Stop 03/11/17 at 04:46; Status DC Morphine Sulfate (Morphine Inj) 3 mg ONCE ONCE IV PUSH Last administered on 06:11; Start 03/11/17 at 06:15; Stop 03/11/17 at 06:16; Status DC Ondansetron HCl 4 mg 4 mg ONCE ONCE IV PUSH Last administered on 03/11/17 06: 10; Start 03/11/17 at 06:15; Stop 03/11/17 at 06:16; Status DC Sodium Chloride (NS 500 ml Inj) 500 ml @ 500 mls/hr BOLUS ONCE IV Last administered on 03/11/17 07:23; Start 03/11/17 at 07:15; Stop 03/11/17 at 08:14 ; Status DC Iohexol 100 ml 100 ml STK-MED ONCE IV Last administered on 03/11/17 07:06; Start 03/11/17 at 07:06; Stop 03/11/17 at 07:07; Status DC Ceftriaxone Sodium 1000 mg/ Sodium Chloride 100 ml @ 200 mls/hr ONCE ONCE IV Last administered on 03/11/17 07:48; Start 03/11/17 at 07:30; Stop 03/11/17 at 07:59; Status DC Ciprofloxacin/ Dextrose 200 ml @ 200 mls/hr ONCE ONCE IV Last administered on 03/11/17 08:26; Start 03/11/17 at 07:45; Stop 03/11/17 at 08:44; Status DC Sodium Chloride (NS 500 ml Inj) 500 ml @ 500 mls/hr BOLUS ONCE IV Last administered on 03/11/17 08:44; Start 03/11/17 at 08:45; Stop 03/11/17 at 09:44 ; Status DC Ondansetron HCl 4 mg 4 mg ONCE ONCE IV PUSH Last administered on 03/11/17 09: 53; Start 03/11/17 at 10:00; Stop 03/11/17 at 10:01; Status DC Sodium Chloride 500 ml @ 500 mls/hr BOLUS ONCE IV Last administered on 09:58; Start 03/11/17 at 10:00; Stop 03/11/17 at 10:59; Status DC Metronidazole 100 ml @ 100 mls/hr ONCE ONCE IV Last administered on 11:22; Start 03/11/17 at 11:15; Stop 03/11/17 at 12:14; Status DC Metronidazole 100 ml @ 100 mls/hr Q8H IV Last administered on 03/13/17 03:53 ; Start 03/11/17 at 20:00 Ciprofloxacin/ Dextrose (Cipro 400 Mg Premix) 200 ml @ 200 mls/hr Q12H IV Last administered on 03/13/17 05:59; Start 03/11/17 at 18:00 Ondansetron HCl 4 mg 4 mg Q8HR PRN IV PUSH NAUSEA Last administered on 15:47; Start 03/11/17 at 11:30 Sodium Chloride (NS 1000 ml Inj) 1,000 ml @ 40 mls/hr Q24H IV Last administered on 03/11/17 15:21; Start 03/11/17 at 11:30; Stop 03/11/17 at 17:04 ; Status DC Acetaminophen (Tylenol) 650 mg Q4H PRN PO FEVER/ PAIN < 5; Start 03/11/17 at 12 :15 Acetaminophen/ Hydrocodone Bitart 1 tab 1 tab Q4H PRN PO PAIN > 5 Last administered on 03/11/17 15:48; Start 03/11/17 at 12:15 Sodium Chloride 1,000 ml @ 75 mls/hr [id number] IV Last administered on 17:44; Start 03/11/17 at 17:15 Sodium Chloride (NS 250 ml Inj) 250 ml @ 250 mls/hr ONCE ONCE IV Last administered on 03/11/17 17:16; Start 03/11/17 at 17:15; Stop 03/11/17 at 18:14 ; Status DC Acetaminophen/ Butalbital/ Caffeine (Fioricet 325-50-40) 1 tab Q8H PRN PO HEADACHE Last administered on 03/13/17 03:54; Start 03/12/17 at 09:00 Potassium Chloride (KCl) 30 meq ONCE ONCE PO Last administered on 03/12/17 15 :07; Start 03/12/17 at 13:15; Stop 03/12/17 at 13:16; Status DC A/P Assessment and Plan A/P - colitis- improved. advance the diet- change to po antibiotics upon discharge. stool negative for c-diff- -DVT prophylaxis with SCD's Discharge Planning dc home today with f/u by pcp. see med list. d/w the patient. Jose Huang MD March 13, 2017 10:04
[2017-03-13] MEDS ORDERED: CIPR250T52 PO (10:05)
[2017-03-13] MEDS ORDERED: METR-1 PO (10:05)
--- NOTE | 2017-03-13 10:08 | HHI.DCPOC ---
Discharge Care Plan Diagnosis: (1) Colitis Your Health Problems Are: Inflammation Irregular Bowel Function Goals to Promote Your Health * To prevent worsening of your condition and complications * To maintain your health at the optimal level Directions to Meet Your Goals Take your medications as prescribed Follow your dietary instruction Follow activity as directed Keep your appointments as scheduled Take your immunizations and boosters as scheduled If your symptoms worsen call your PCP, if no PCP go to Urgent Care Center or Emergency Room Smoking is Dangerous to Your Health. Avoid second hand smoke Call the 24-hour hour crisis hotline for domestic abuse at Jose Huang MD March 13, 2017 10:08
--- NOTE | 2017-03-13 10:12 | HHI.DS ---
Discharge Summary Admission Date March 11, 2017 at 11:30 Discharge Date: March 13, 2017 Admitting Diagnosis colitis, UTI, intractable nausea, abdominal pain (1) Colitis ICD Code: K52.9 Diagnosis: Principal (2) UTI (urinary tract infection) ICD Code: N39.0 Diagnosis: Principal Procedures none Brief History - From Admission patient is a 81 y/o female who presented to ER with abdominal pain. she says that the pain started last night. pain was periumbilical , colicky in nature and severe in intensity. the pain was associated with nausea and a few non- bloody loose bowel movements. she didn't vomit . there's no report of fever but she had some chills last night. CBC/BMP: 03/13/17 0632 03/12/17 0855 Significant Findings Laboratory Tests Test 03/11/17 03/11/17 03/12/17 03/13/17 05:32 06:20 08:55 06:32 Prothrombin Time 12.7 SEC (9.8-11.6) Chloride Level 108 MEQ/L (98-107) Blood Urea Nitrogen 23 MG/DL (7-18) Estimat Glomerular Filtration 72 ML/MIN (>89) 70 ML/MIN (>89) Rate Aspartate Amino Transf 38 U/L (15-37) (AST/SGOT) Alkaline Phosphatase 30 U/L (45-117) Troponin I LESS THAN 0.02 NG/ML (0.02-0.05) Urine Color KIET (YELLW/STRAW) Urine Ketones TRACE mg/dL (NEG) Urine Leukocyte Esterase SMALL (NEG) Urine WBC 9-14 /hpf (0-5) Urine Bacteria OCC /hpf (NONE) White Blood Count 13.1 TH/MM3 11.1 TH/MM3 (4.0-11.0) (4.0-11.0) Neutrophils (%) (Auto) 79.4 % 77.4 % (16.0-70.0) (16.0-70.0) Lymphocytes (%) (Auto) 7.9 % (9.0-44.0) Monocytes (%) (Auto) 11.5 % (0.0-8.0) Neutrophils # (Auto) 10.5 TH/MM3 8.6 TH/MM3 (1.8-7.7) (1.8-7.7) Monocytes # (Auto) 1.5 TH/MM3 (0-0.9) Potassium Level 3.3 MEQ/L (3.5-5.1) Random Glucose 116 MG/DL (74-106) Calcium Level 7.3 MG/DL (8.5-10.1) Protein Corrected Calcium 8.4 MG/DL (8.5-10.1) Total Protein 5.1 GM/DL (6.4-8.2) Red Blood Count 3.75 MIL/MM3 (4.00-5.30) Hemoglobin 11.1 GM/DL (11.6-15.3) Hematocrit 33.4 % (35.0-46.0) Imaging Last Impressions Chest X-Ray 03/11/17436 Signed Impressions: Service Date/Time: Saturday, March 11, 2017 04:57 - CONCLUSION: Normal examination. Right hemidiaphragm remains elevated Krishna Santiago MD Abdomen/Pelvis CT 03/11/17436 Signed Impressions: Service Date/Time: Saturday, March 11, 2017 06:26 - CONCLUSION: Generalized nonspecific colitis. Álvaro Powell MD PE at Discharge GENERAL: This is a well-nourished, well-developed patient, in no apparent distress. CARDIOVASCULAR: Regular rate and regular rhythm without murmurs, gallops, or rubs. RESPIRATORY: Clear to auscultation. Breath sounds equal bilaterally. No wheezes , rales, or rhonchi. GASTROINTESTINAL: Abdomen soft, non-tender, nondistended. Normal, active bowel sounds MUSCULOSKELETAL: Extremities without clubbing, cyanosis, or edema. NEURO: Alert & Oriented x4 to person, place, time, situation. Moves all ext x4 Hospital Course - colitis- improved. advance the diet- change to po antibiotics upon discharge. stool negative for c-diff- -DVT prophylaxis with SCD's Pt Condition on Discharge: Good Discharge Disposition: Discharge Home Discharge Time: <= 30 minutes Discharge Instructions DIET: Follow Instructions for: Heart Healthy Diet Activities you can perform: Regular-No Restrictions Follow up Referrals: PCP Follow-up Continued Medications: Ciprofloxacin (Cipro) 250 Mg Tab 250 MG PO BID Infection Days 7 Ref 0 TAB (This prescription has been renewed) Metronidazole (Flagyl) 500 Mg Tab 500 MG PO TID Infection Days 7 Ref 0 TAB (This prescription has been renewed) Phenazopyridine (Pyridium) 100 Mg Tab 100 MG PO Q8H PRN DYSURIA #6 Ref 0 TAB Promethazine (Phenergan) 25 Mg Tablet 25 MG PO Q6H PRN NAUSEA OR VOMITING #10 Ref 0 TAB Jose Huang MD March 13, 2017 10:12
[2017-03-13] MEDS: SODIUM CHLOR 0.9% 1000 ML INJ 1,000 ML IV SCH (11:42)
[2017-03-13 12:00] VITALS: BP 98/64; PULSE 74; RESP 19; TEMP 97.1; O2SAT 93
== END 2017-03-13 13:10 | disposition home or self-care (01) ==
LOC: PHED 04:15 → PHEDA 11:30 → PH3B 14:25
PROVIDERS: ADMIT Internal Medicine; ATTEND Internal Medicine
DX: K52.9 Noninfective gastroenteritis and colitis, unspecified (principal); N39.0 Urinary tract infection, site not specified
CPT/HCPCS: 71010; 74177; 80048; 80053; 81001; 83605; 83690; 83735; 84155; 84484; 85025; 85610; 85730; 87086; 87493; 87506; 93005; 96361; 96365; 96367; 96375; 99285; G0378; J0696; J0744; J2270; J2405; J7030; J7040; J7050; Q9967